=== PATIENT | male | born 1985 | race Hispanic/Latino ===

== ENCOUNTER 2016-11-09 09:57 | Emergency (ER) | payer MEDICAID ==
[2016-11-09 09:57] VITALS: BMI 40.6
[2016-11-09 10:09] VITALS: BP 149/82; PULSE 104; RESP 16; TEMP 99.1; O2SAT 98
--- NOTE | 2016-11-09 10:28 | ED PDOC ---
Arrival/HPI - General Chief Complaint: Seizure Time Seen by Provider: 11/09/16 10:21 Historian: Patient - History of Present Illness Narrative History of Present Illness (Text): 11/09/16 10:22 A 31 year old male whose past medical history includes seizure disorder, presents to the emergency department after having a seizure this morning . He was found on the bathroom floor by his father. The patient states that he has the seizures on a monthly basis. He notes that the seizure resolved on its own and that he is currently asymptomatic. He denies headache, dizziness, nausea, vomiting, diarrhea, abdominal pain, chest pain, shortness of breath, or any other complaint. Patient is ANOx3 to person, place and time. Time/Duration: Prior to Arrival Symptom Onset: Sudden Symptom Course: Resolved Activities at Onset: Rest, Light Context: Home Past Medical History - Provider Review Nursing Documentation Reviewed: Yes - Infectious Disease Hx of Infectious Diseases: None - Tetanus Immunization Tetanus Immunization: Unknown - Reproductive Currently : No - Past Medical History Past Medical History: Unable to Obtain - Neurological Hx Seizures: Yes - Psychiatric Hx Depression: No Hx Emotional Abuse: No Hx Physical Abuse: No Hx Substance Use: No - Past Surgical History Past Surgical History: Unable to Obtain - Surgical History Hx Orthopedic Surgery: Yes - Anesthesia Hx Anesthesia: No - Suicidal Assessment Feels Threatened In Home Enviroment: No Family/Social History - Physician Review Nursing Documentation Reviewed: Yes Family/Social History: No Known Family HX Smoking Status: Never Smoked Hx Alcohol Use: No Hx Substance Use: No Hx Substance Use Treatment: No Allergies/Home Meds Allergies/Adverse Reactions: Allergies No Known Allergies Allergy (Verified 11/09/16 10:04) Home Medications: Home Meds Medication Instructions Recorded Confirmed Carbamazepine [Carbamazepine ER] 600 mg PO BID 06/04/15 11/09/16 Zonisamide [Zonegran] 300 mg PO BID 11/09/16 11/09/16 Physical Exam - Physical Exam Narrative Physical Exam (Text): - Review of Systems Constitutional: Normal. absent: Fatigue, Weight Change, Fevers Eyes: Normal ENT: Normal Respiratory: Normal absent: SOB, Cough, Sputum Cardiovascular: Normal absent: Chest pain, Palpitations, Syncope Gastrointestinal: Normal absent: Abdominal pain, Diarrhea, Nausea, Vomiting Genitourinary: Normal. absent: Dysuria, Frequency, Hematuria Musculoskeletal: Normal. absent: Arthralgias, Back Pain, Neck Pain Skin: Normal Neurological: Seizure absent: Focal Weakness Endocrine: Normal Hemo/Lymphatic: Normal Psychiatric: Normal - Physical exam Patient appears age appropriate, speaking full sentences without difficulty - Systems Exam Head atraumatic. No nasal bone deformity or tenderness, no facial or jaw pain/ swelling. No neck midline tenderness, thoracic and lumbar spine with no midline tenderness. Pt moving b/l upper and lower extremities without difficulty, 5/5 strength, with full active and passive ROM. Distal neurovasc fully intact. Abd soft/nt/nd, no hematomas, no peritoneal signs. Neg. pelvic rock. Head: Present: Atraumatic, Normocephalic Pupils: Present: PERRL Extraocular Muscles: Present: EOMI Conjunctiva: Present: Normal Mouth: Present: Moist Mucous Membranes Neck: Present: Normal Range of Motion. No: MIDLINE TENDERNESS, Paraspinal Tenderness Respiratory/Chest: Present: Clear to Auscultation, Good Air Exchange. No: Respiratory Distress, Accessory Muscle Use, Tachypneic Cardiovascular: Present: Regular Rate and Rhythm, Normal S1, S2, Peripheral Pulses Present. No: Murmurs Abdomen: Present: Normal Bowel Sounds, No: Tenderness, Peritoneal Signs, Rebound, Guarding, Distention Back: Present: Normal Inspection. No: Midline Tenderness, Paraspinal Tenderness Upper Extremity: Present: Normal Inspection. No: Cyanosis, Edema Lower Extremity: Present: Normal Inspection. No: Edema Neurological: Present: GCS=15, Speech Normal, cranial nerves II through XII fully intact with no cerebellar abnormality, neuro-sensory fully intact. No focal neurological deficits. Skin: Present: Warm, Dry, Normal Color. No: Rashes Lymphatic: Present: OX3, NI, NC Psychiatric: Present: Alert, Oriented x 3, Normal Insight, Normal Concentration Vital Signs Reviewed: Yes Vital Signs Temp Pulse Resp BP Pulse Ox 11/09/16 10:08 99.1 F 104 H 16 149/82 98 Temperature: Afebrile Blood Pressure: Normal Pulse: Tachycardic Respiratory Rate: Normal Appearance: Positive for: Well-Appearing, Non-Toxic, Comfortable Pain Distress: None Mental Status: Positive for: Alert and Oriented X 3 Medical Decision Making ED Course and Treatment: 11/09/16 10:28 Impression: A 31 year old male presents after having a seizure this morning that spontaneously resolved. On exam, no acute findings. Patient is asymptomatic. No focal neurological deficits. Plan: -- EKG -- Labs -- Reassess and disposition Progress Notes: 11/09/16 10:41: Family states that they no longer want to stay in the emergency department. The father states that he has power of admitted attorneys and has requested to leave Against Medical Advice. Reports that they will follow up with Dr. Vaz. Leaving Against Medical Advice (AMA): The patient and father are choosing to leave against medical advice. I have personally explained to the family that choosing to do so may result in permanent bodily harm or . I have discussed at great length that without further evaluation and monitoring there may be unforeseen circumstances and/or deterioration causing permanent bodily harm or as a result of their choice. The patient and father are alert, oriented, and show the mental capacity to make clear decisions regarding the their health care at this time. The patient continues to wish to leave against medical advice. In light of the patients decision to leave against medical advice, follow-up has been arranged and the patient is aware of the importance to following up as instructed. The patient and father have been advised that they should return to the emergency room immediately if they change their mind at any time, or if their condition begins to change or worsen in any way. Dr. Vaz paged, no callback - Lab Interpretations I have reviewed the lab results: Yes - EKG Interpretation Interpreted by ED Physician: Yes Type: 12 lead EKG - Scribe Statement The provider has reviewed the documentation as recorded by the Scribe Griselda Schaffer Provider Scribe Attestation: All medical record entries made by the Scribe were at my direction and personally dictated by me. I have reviewed the chart and agree that the record accurately reflects my personal performance of the history, physical exam, medical decision making, and the department course for this patient. I have also personally directed, reviewed, and agree with the discharge instructions and disposition Disposition/Present on Arrival - Present on Arrival Any Indicators Present on Arrival: No History of DVT/PE: No History of Uncontrolled Diabetes: No Urinary Catheter: No History of Decub. Ulcer: No History Surgical Site Infection Following: None - Disposition Have Diagnosis and Disposition been Completed?: Yes Diagnosis: Seizure Disposition: AGAINST MEDICAL ADVICE Disposition Time: 10:43 Patient Plan: Discharge Condition: GOOD Discharge Instructions (ExitCare): Epilepsy (ED), Recurrent Seizures in Adults (ED), Against Medical Advice (ED) Additional Instructions: PLEASE RETURN TO THE EMERGENCY DEPARTMENT FOR NEW OR WORSENING SYMPTOMS. RETURN RIGHT AWAY IF YOU CANNOT FOLLOW UP WITH YOUR PRIMARY CARE DOCTOR, CLINIC, OR SPECIALIST IN 1-2 DAYS. Referrals: Otto Segovia Reapurva, [Primary Care Provider] - Follow up with primary Nathanael Vaz MD [Staff Provider] - Follow up with primary Calvin Vaz MD [Staff Provider] - Follow up with primary Forms: [employer] (Kiswahili)
[2016-11-09 10:46] LABS: BASO # 0.01 K/mm3 (0.0-2.0); BASO % 0.2 % (0.0-3.0); EOS # 0.1 (0.0-0.7); EOS % 1.9 % (1.5-5.0); GRAN # 2.96 (1.4-6.5); GRAN % 55.6 % (50.0-68.0); LYMPH # 1.9 (1.2-3.4); LYMPH % 36.3 % (22.0-35.0); MEAN CELL VOLUME 94.1 fl (80.0-105.0); MEAN CORPUSCULAR HEMOGLOBIN 32.6 pg (25.0-35.0); MEAN CORPUSCULAR HGB CONC 34.7 g/dl (31.0-37.0); MEAN PLATELET VOLUME 8.7 fl (7.0-11.0); MONO # 0.3 (0.1-0.6); RED CELL DISTRIBUTION WIDTH 12.7 % (11.5-14.5); WHITE BLOOD COUNT 5.3 10^3/ul (4.5-11.0)
[2016-11-09 10:51] LABS: ALB/GLOB RATIO 1.4 (1.1-1.8); ALKALINE PHOSPHATASE 63 U/L (38-126); ALT/SGPT 38 U/L (7-56); AST/SGOT 23 U/L (17-59); BILIRUBIN,TOTAL 0.3 mg/dL (0.2-1.3); BLOOD UREA NITROGEN 11 mg/dL (7-21); CALCIUM 8.7 mg/dL (8.4-10.5); CARBON DIOXIDE 27 mmol/L (21-33); CHLORIDE 100 mmol/L (98-107); GFR AFRICAN-AMERICAN > 60; GLUCOSE,RANDOM 255 mg/dL (70-110); POTASSIUM 3.9 mmol/L (3.6-5.0); SODIUM 138 mmol/L (132-148)
--- NOTE | 2016-11-09 20:50 | CARD ---
APPROVED REPORT EKG Measurement Heart [id number] IN 130P24 [id number] <Conclusion> Sinus tachycardia Moderate voltage criteria for LVH, may be normal variant Borderline ECG
== END 2016-11-09 11:24 | disposition left against medical advice (07) ==
LOC: ED 09:57
DX: G40.909 Epilepsy, unspecified, not intractable, without status epilepticus (principal)

== ENCOUNTER 2017-07-13 10:53 | Emergency (ER) | payer MEDICAID ==
[2017-07-13 10:54] VITALS: BMI 40.6
== END 2017-07-13 11:14 | disposition left against medical advice (07) ==
LOC: ED 10:53
DX: Z02.89 Encounter for other administrative examinations (principal); R56.9 Unspecified convulsions

== ENCOUNTER 2017-11-17 09:32 | Emergency (ER) | payer MEDICAID ==
[2017-11-17 09:33] VITALS: BMI 40.6
[2017-11-17 09:48] VITALS: TEMP 98; O2SAT 99
[2017-11-17] MEDS ORDERED: TDAP Vaccine 0.5 mL Syr IM ONE (09:54)
--- NOTE | 2017-11-17 09:54 | ED PDOC ---
Arrival/HPI - General Time Seen by Provider: 11/17/17 09:47 Historian: Patient - History of Present Illness Narrative History of Present Illness (Text): 11/17/17 09:49 32 y/o male, pmh including seizure, nkda, last tetanus doesn't remember, biba, fully AOX3, alert and oriented, c/o head and facial injury s/p seizure episode about 2 hours ago. Pt. stated that he just went outside of his house, witnessed by bystanders that he had a seizure episode which the patient doesn't recall the whole event, fall to the lt. sided head/facial region, associated with laceration, no neck or back pain, admits bilateral hand abrasion from the fall, no numbness or tingling, no night sweat, no dizziness, no change in vision , no rash, no chest pain or shortness of breath, no other medical or psychological complaints. Past Medical History - Provider Review Nursing Documentation Reviewed: Yes - Infectious Disease Hx of Infectious Diseases: None - Tetanus Immunization Tetanus Immunization: Unknown - Past Medical History Past Medical History: Unable to Obtain - Cardiac Hx Cardiac Disorders: No - Pulmonary Hx Respiratory Disorders: No - Neurological Hx Seizures: Yes Other/Comment: ADD - HEENT Hx HEENT Disorder: No - Renal Hx Renal Disorder: No - Endocrine/Metabolic Hx Endocrine Disorders: No - Hematological/Oncological Hx Blood Disorders: No - Integumentary Hx Dermatological Disorder: No - Musculoskeletal/Rheumatological Hx Musculoskeletal Disorders: No - Gastrointestinal Hx Gastrointestinal Disorders: No - Genitourinary/Gynecological Hx Genitourinary Disorders: No - Psychiatric Hx Depression: No Hx Emotional Abuse: No Hx Physical Abuse: No Hx Substance Use: No - Past Surgical History Past Surgical History: Unable to Obtain - Surgical History Hx Orthopedic Surgery: Yes - Anesthesia Hx Anesthesia: No - Suicidal Assessment Feels Threatened In Home Enviroment: No Family/Social History - Physician Review Nursing Documentation Reviewed: Yes Family/Social History: Unknown Family HX Smoking Status: Never Smoked Hx Alcohol Use: No Hx Substance Use: No Hx Substance Use Treatment: No Allergies/Home Meds Allergies/Adverse Reactions: Allergies No Known Allergies Allergy (Verified 11/09/16 10:04) Home Medications: Home Meds Medication Instructions Recorded Confirmed Carbamazepine [Carbamazepine ER] 600 mg PO BID 06/04/15 11/17/17 Zonisamide [Zonegran] 300 mg PO BID 11/09/16 11/17/17 Review of Systems - Review of Systems Constitutional: absent: Fatigue, Fevers Eyes: absent: Vision Changes ENT: absent: Hearing Changes Respiratory: absent: SOB Cardiovascular: absent: Syncope Gastrointestinal: absent: Nausea, Vomiting Musculoskeletal: absent: Arthralgias, Back Pain, Neck Pain Skin: Laceration, Other (+abrasion). absent: Rash, Pruritis, Skin Lesions, Abscess, Ulcer, Cellulitis Neurological: absent: Headache, Dizziness Psychiatric: absent: Anxiety, Depression, Suicidal Ideation Physical Exam Vital Signs Reviewed: Yes Vital Signs Temp Pulse Resp BP Pulse Ox 11/17/17 13:55 79 19 148/86 99 11/17/17 10:45 79 22 150/87 99 11/17/17 09:43 98 F 78 18 135/77 99 Temperature: Afebrile Blood Pressure: Normal Pulse: Regular Respiratory Rate: Normal Appearance: Positive for: Well-Appearing, Non-Toxic, Comfortable Pain Distress: Mild Mental Status: Positive for: Alert and Oriented X 3 - Systems Exam Head: Present: Normocephalic, Contusion (lt. lateral frontal forehead), Swelling (lt. lateral frontal forehead), Other (Facial: lt. lateral periorbital region visible approx. 3cm superficial to intermediate depth laceration with irregular shaped along with abrasion and avulsed wound noted with no visible foreign bodies. ). No: Tenderness, Ecchymosis, Abrasion, Laceration Pupils: Present: PERRL Extroacular Muscles: Present: EOMI Conjunctiva: Present: Normal Ears: Present: NORMAL TM, Normal Canal. No: Erythema, TM Bulging Mouth: Present: Moist Mucous Membranes Pharnyx: Present: Normal. No: ERYTHEMA, EXUDATE, TONSILS ENLARGED, Uvular Deviation, Soft Palate/Uvular Edema Nose (External): Present: Atraumatic. No: Abrasion, Contusion, Laceration Nose (Internal): Present: Normal Inspection, No Active Bleeding. No: Rhinorrhea , Septal Hematoma, Epistaxis Neck: Present: Normal Range of Motion, Trachea Midline. No: Meningeal Signs, MIDLINE TENDERNESS, Paraspinal Tenderness, Lymphadenopathy Respiratory/Chest: Present: Clear to Auscultation, Good Air Exchange. No: Respiratory Distress, Accessory Muscle Use, Wheezes, Decreased Breath Sounds, Rales, Retracting, Rhonchi, Tachypneic, Tender to Palpation Cardiovascular: Present: Regular Rate and Rhythm, Normal S1, S2. No: Murmurs Abdomen: No: Tenderness, Distention, Peritoneal Signs Back: Present: Normal Inspection. No: CVA Tenderness, Midline Tenderness, Paraspinal Tenderness, Pain with Leg Raise Upper Extremity: Present: Normal Inspection, Other (Bilateral hand/wrist: + bilateal hand 2nd to 5th digit region approx. 1cm diameter abrasion noted on the dorsum digits, no scaphoid tenderness, FROM without limitation, sensation intact, motor 5/5, +radial pulse, capillary refill< 2 seconds, neurovascular intact. ). No: Cyanosis, Edema Lower Extremity: Present: Normal Inspection, NORMAL PULSES, Normal ROM, Neurovascularly Intact, Capillary Refill < 2 s. No: Edema, CALF TENDERNESS, Tenderness, Swelling, Deformity Neurological: Present: GCS=15, CN II-XII Intact, Speech Normal, Motor Func Grossly Intact, Gait Normal, Memory Normal Skin: Present: Warm, Dry, Normal Color. No: Rashes Lymphatic: No: Cervical Adenopathy Psychiatric: Present: Alert, Oriented x 3, Normal Insight, Normal Concentration Medical Decision Making ED Course and Treatment: 11/17/17 10:08 -Labs/ck/uds/alcohol -CT head/facial -Bilateral hands xrays -IVF/tdap -wound irrigates with normal saline, clean with betadine, bacitracin and gauze dressing. -Observe and reassess 11/17/17 10:32 -Pt just had an seizure episode, ativan 2mg IV ordered. 11/17/17 12:02 -Pt. is calmed, awake and alertx4, feeling well, not in postictal state. 11/17/17 12:12 -Pt. has another of seizure, examined with Dr. Dupree, agreed keppra 1g and ativan 2mg. 11/17/17 12:56 PROCEDURE: LACERATION REPAIR Performed by the emergency provider Location: lt. lateral eyebrow region Length: 3 cm Description: {"clean, irregular/avulsion/abrasion wound edge","no foreign bodies "} Distal CMS: Normal. No deficits. Neurovascularly intact. Anesthesia: Lidocaine 1% using 1cc Preparation: The wound was cleaned with NS 1000cc and clean with Betadyne. The area was prepped and draped in the usual sterile fashion. Exploration: The wound was explored and no foreign bodies were found. Procedure: The wound was closed with 6-0 nylon. There was {good / appropriate / adequate / loose} approximation. In total, 7 were used. Post-Procedure: Good closure and hemostasis. The patient tolerated the procedure well and there were no complications. CSM remains intact. Post procedure dressing applied. I explained to the patient that he would need the stiches removed by day 5. 11/17/17 13:35 -CT Head: No acute intracranial findings -CT Facial: No evidence of fracture -Left hand xray: no fracture or dislocation -Rt. hand xray: no fracture or dislocation -Labs show no acute findings -Alcohol/salicylate and carba level: within normal limit -UA ordered and no specieman provided -UDS ordered and no specieman provided. -I discussed the case with his pmd Dr. Daniel Benedict which I recommend admission as he had 2 episodes of seizure in the past 3 hours but the patient is declining admission which he is fully awake and Alert/oriented x4 that he can make his own decision. Father is on the bedside and agreed with his son's decision. AMA -Pt. received 1gm of keppra, aox4, alert and oriented, not in seizure and no postictal state, refused to be admitted and the father stated that he respect his son decision. Father stated that the son can make his own decision and he has no legal rights. Father stated that he would take the son home and call ambulance when they decide to resume the care, Against medical advice paper signed by the patient and the father. -You sign out against medical advice. you need to stay at the hospital for your seizure and further evaluation but you declined. You need to see your own pmd and neurologist within 1 days, sutures need to be removed by day 5 and clean the wound twice daily, return to the ER for any new or worsening signs or symptoms. - Lab Interpretations Lab Results: 11/17/17 10:30 11/17/17 10:30 Lab Results 11/17/17 10:30: WBC 9.3 D, RBC 4.96, Hgb 15.8, Hct 47.0, MCV 94.8, MCH 31.9, MCHC 33.6, RDW 12.3, Plt Count 202, MPV 8.9, Gran % 56.3, Lymph % (Auto) 35.9 H , [place] % (Auto) 6.1 H, Eos % (Auto) 1.5, Baso % (Auto) 0.2, Gran # 5.23, Lymph # (Auto) 3.3, [place] # (Auto) 0.6, Eos # (Auto) 0.1, Baso # (Auto) 0.02 11/17/17 10:30: Alcohol, Quantitative < 10 11/17/17 10:30: Salicylates < 1 L, Carbamazepine 9 11/17/17 10:30: Sodium 143, Potassium 4.0, Chloride 105, Carbon Dioxide 26, Anion Gap 16, BUN 13, Creatinine 1.1, Est GFR ( Amer) > 60, Est GFR (Non- Af Amer) > 60, Random Glucose 134 H, Calcium 9.0, Magnesium 2.0, Total Bilirubin 0.3, AST 25, ALT 38, Alkaline Phosphatase 88, Total Creatine Kinase 98 , Total Protein 8.1, Albumin 4.7, Globulin 3.4, Albumin/Globulin Ratio 1.4 - RAD Interpretation Radiology Orders: 11/17/17 09:54 HEAD W/O CONTRAST [CT] Stat MAXILLOFACIAL W/O CONTRAST [CT] Stat 11/17/17 10:02 HAND LEFT 3 VIEWS ROUTINE [RAD] Stat HAND RIGHT 3 VIEWS [RAD] Stat CT Head: PROCEDURE: CT HEAD WITHOUT CONTRAST. HISTORY: fall, seizure, injury COMPARISON: 08/05/2014 TECHNIQUE: Axial computed tomography images were obtained through the head/brain without intravenous contrast. Radiation dose: Total exam DLP = 898 mGy-cm. This CT exam was performed using one or more of the following dose reduction techniques: Automated exposure control, adjustment of the mA and/or kV according to patient size, and/or use of iterative reconstruction technique. FINDINGS: HEMORRHAGE: No intracranial hemorrhage. BRAIN: No mass effect or edema. No atrophy or chronic microvascular ischemic changes. VENTRICLES: Unremarkable. No hydrocephalus. CALVARIUM: Unremarkable. PARANASAL SINUSES: Unremarkable as visualized. No significant inflammatory changes. MASTOID AIR CELLS: Unremarkable as visualized. No inflammatory changes. OTHER FINDINGS: None. IMPRESSION: No acute intracranial findings -------- CT facial: PROCEDURE: CT MAXILLOFACIAL BONES WITHOUT CONTRAST HISTORY: Lt. lateral eyebrow laceration, fall, seizure COMPARISON: None available. TECHNIQUE: Contiguous axial CT images of the maxillofacial bones were obtained. Coronal and sagittal reformats were generated. Radiation dose: Total exam DLP = 850 mGy-cm. This CT exam was performed using one or more of the following dose reduction techniques: Automated exposure control, adjustment of the mA and/or kV according to patient size, and/or use of iterative reconstruction technique. FINDINGS: NASAL BONES: Unremarkable. ORBITS: There is soft tissue swelling lateral to the left orbit. There is no fracture PARANASAL SINUSES/ MASTOIDS: Clear. MAXILLA: Unremarkable. MANDIBLE/ TEMPOROMANDIBULAR JOINTS: Unremarkable. SKULL BASE: Unremarkable. TEMPORAL BONES: Middle ears and mastoid grossly unremarkable. OTHER FINDINGS: None. IMPRESSION: No evidence of fracture ------- Lt. hand xray: PROCEDURE: Left Hand Radiographs. HISTORY: finger abrasion and injury COMPARISON: None. FINDINGS: BONES: Normal. No fracture. JOINTS: Normal. No osteoarthritic changes. SOFT TISSUES: Normal. OTHER FINDINGS: None. IMPRESSION: Normal left hand radiographs. Rt. hand xray: PROCEDURE: Right Hand Radiographs. HISTORY: finger abrasion and injury COMPARISON: None. FINDINGS: BONES: Normal. No fracture. JOINTS: Normal. No osteoarthritic changes. SOFT TISSUES: Normal. OTHER FINDINGS: None. IMPRESSION: Normal right hand radiographs. Public Health Training Assistant: Radiologist - Medication Orders Current Medication Orders: Discontinued Medications Sodium Chloride (Sodium Chloride 0.9%) 1,000 mls @ 999 mls/hr IV .Q1H1M STA Stop: 11/17/17 10:56 Last Admin: 11/17/17 10:46 Dose: 999 mls/hr eMAR Start Stop Document 11/17/17 10:46 SUDO (Rec: 11/17/17 10:47 [id number] Intravenous Solution Start Date 11/17/17 Start Time 10:35 Levetiracetam 1,000 mg/ Sodium (Chloride) 110 mls @ 440 mls/hr IV ONCE ONE Stop: 11/17/17 12:27 Last Admin: 11/17/17 12:54 Dose: 440 mls/hr eMAR Start Stop Document 11/17/17 12:54 SUDO (Rec: 11/17/17 12:55 [place] [id number]) Intravenous Solution Start Date 11/17/17 Start Time 12:55 Lorazepam (Ativan) 2 mg IVP ONCE ONE PRN Reason: Protocol Stop: 11/17/17 10:34 Last Admin: 11/17/17 10:47 Dose: 2 mg IVP Administration Document 11/17/17 10:47 DELANOO (Rec: 11/17/17 10:48 [id number] Charges for Administration # of IVP Administrations 1 Lorazepam (Ativan) 2 mg IVP ONCE ONE PRN Reason: Protocol Stop: 11/17/17 12:14 Last Admin: 11/17/17 12:20 Dose: 2 mg Comments: seizure IVP Administration Document 11/17/17 12:20 SUDO (Rec: 11/17/17 12:59 [id number]) Charges for Administration # of IVP Administrations 1 Tetanus/Reduced Diphtheria/Acell Pertussis (Boostrix Vaccine Inj) 0.5 ml IM .ONCE ONE Stop: 11/17/17 09:55 Last Admin: 11/17/17 10:48 Dose: 0.5 ml MAR Immunization Data Document 11/17/17 10:48 SUDOJ (Rec: 11/17/17 10:49 SUDOJ [id number]) Immunization Data Vaccine Information Sheet Given Yes Vaccine Information Sheet Given Date 11/17/17 Associated Event Comment patient s/p fall Immunization Registry Document 11/17/17 10:48 SUDOJ (Rec: 11/17/17 10:49 SUDOJ [id number]) Immunization Registry Consent Date 06/25/17 - PA / FORMS DESIGNER / Resident Statement DREA has reviewed & agrees with the documentation as recorded. Disposition/Present on Arrival - Present on Arrival Any Indicators Present on Arrival: No History of DVT/PE: No History of Uncontrolled Diabetes: No Urinary Catheter: No History of Decub. Ulcer: No History Surgical Site Infection Following: None - Disposition Have Diagnosis and Disposition been Completed?: Yes Diagnosis: Seizure, Facial laceration, Abrasion, Contusion, Non-compliance Disposition: AGAINST MEDICAL ADVICE Disposition Time: 13:40 Condition: STABLE Additional Instructions: -You sign out against medical advice. you need to stay at the hospital for your seizure and further evaluation but you declined. You need to see your own pmd and neurologist within 1 days, sutures need to be removed by day 5 and clean the wound twice daily, return to the ER for any new or worsening signs or symptoms. Prescriptions: Cephalexin [Keflex] 500 mg PO TID #15 capsule Referrals: Nathanael Vaz MD [Staff Provider] - Follow up with primary Daniel Benedict DO [Family Provider] - Follow up with primary Forms: WORK NOTE
[2017-11-17] MEDS ORDERED: Sodium Chloride 0.9% 1,000 ML IV STA (09:56)
[2017-11-17 11:00] LABS: ALB/GLOB RATIO 1.4 (1.1-1.8); ALBUMIN 4.7 g/dL (3.0-4.8); ALT/SGPT 38 U/L (7-56); AST/SGOT 25 U/L (17-59); BLOOD UREA NITROGEN 13 mg/dL (7-21); GFR NON-AFRICAN AMERICAN > 60
[2017-11-17 11:08] LABS: CARBAMAZEPINE 9 ug/mL (4.0-10.0); SALICYLATE < 1 mg/dL (2.0-20.0)
[2017-11-17 11:17] LABS: BASO # 0.02 K/mm3 (0.0-2.0); BASO % 0.2 % (0.0-3.0); EOS # 0.1 (0.0-0.7); EOS % 1.5 % (1.5-5.0); GRAN # 5.23 (1.4-6.5); GRAN % 56.3 % (50.0-68.0); HEMOGLOBIN 15.8 g/dL (14.0-18.0); LYMPH # 3.3 (1.2-3.4); LYMPH % 35.9 % (22.0-35.0); MEAN CELL VOLUME 94.8 fl (80.0-105.0); MEAN CORPUSCULAR HEMOGLOBIN 31.9 pg (25.0-35.0); MEAN CORPUSCULAR HGB CONC 33.6 g/dl (31.0-37.0); MEAN PLATELET VOLUME 8.9 fl (7.0-11.0); MONO # 0.6 (0.1-0.6); MONO % 6.1 % (1.0-6.0); RBC 4.96 10^6/uL (3.5-6.1); RED CELL DISTRIBUTION WIDTH 12.3 % (11.5-14.5); WHITE BLOOD COUNT 9.3 10^3/ul (4.5-11.0)
--- NOTE | 2017-11-17 11:43 | CT ---
Date of service: 11/17/2017 PROCEDURE: CT HEAD WITHOUT CONTRAST. HISTORY: fall, seizure, injury COMPARISON: 08/05/2014 TECHNIQUE: Axial computed tomography images were obtained through the head/brain without intravenous contrast. Radiation dose: Total exam DLP = 898 mGy-cm. This CT exam was performed using one or more of the following dose reduction techniques: Automated exposure control, adjustment of the mA and/or kV according to patient size, and/or use of iterative reconstruction technique. FINDINGS: HEMORRHAGE: No intracranial hemorrhage. BRAIN: No mass effect or edema. No atrophy or chronic microvascular ischemic changes. VENTRICLES: Unremarkable. No hydrocephalus. CALVARIUM: Unremarkable. PARANASAL SINUSES: Unremarkable as visualized. No significant inflammatory changes. MASTOID AIR CELLS: Unremarkable as visualized. No inflammatory changes. OTHER FINDINGS: None. IMPRESSION: No acute intracranial findings
--- NOTE | 2017-11-17 11:46 | CT ---
Date of service: 11/17/2017 PROCEDURE: CT MAXILLOFACIAL BONES WITHOUT CONTRAST HISTORY: Lt. lateral eyebrow laceration, fall, seizure COMPARISON: None available. TECHNIQUE: Contiguous axial CT images of the maxillofacial bones were obtained. Coronal and sagittal reformats were generated. Radiation dose: Total exam DLP = 850 mGy-cm. This CT exam was performed using one or more of the following dose reduction techniques: Automated exposure control, adjustment of the mA and/or kV according to patient size, and/or use of iterative reconstruction technique. FINDINGS: NASAL BONES: Unremarkable. ORBITS: There is soft tissue swelling lateral to the left orbit. There is no fracture PARANASAL SINUSES/ MASTOIDS: Clear. MAXILLA: Unremarkable. MANDIBLE/ TEMPOROMANDIBULAR JOINTS: Unremarkable. SKULL BASE: Unremarkable. TEMPORAL BONES: Middle ears and mastoid grossly unremarkable. OTHER FINDINGS: None. IMPRESSION: No evidence of fracture
[2017-11-17] MEDS ORDERED: levETIRAcetam 1,000 MG in Sodium Chloride 0.9% 100 ML IV ONE (12:13)
[2017-11-17 13:55] VITALS: PULSE 79
[2017-11-17 13:56] VITALS: BP 148/86; RESP 19
--- NOTE | 2017-11-17 14:49 | RAD ---
PROCEDURE: Right Hand Radiographs. HISTORY: finger abrasion and injury COMPARISON: None. FINDINGS: BONES: Normal. No fracture. JOINTS: Normal. No osteoarthritic changes. SOFT TISSUES: Normal. OTHER FINDINGS: None. IMPRESSION: Normal right hand radiographs.
--- NOTE | 2017-11-17 14:50 | RAD ---
PROCEDURE: Left Hand Radiographs. HISTORY: finger abrasion and injury COMPARISON: None. FINDINGS: BONES: Normal. No fracture. JOINTS: Normal. No osteoarthritic changes. SOFT TISSUES: Normal. OTHER FINDINGS: None. IMPRESSION: Normal left hand radiographs.
== END 2017-11-17 13:35 | disposition left against medical advice (07) ==
LOC: ED 09:32
DX: S01.112A Laceration without foreign body of left eyelid and periocular area, initial encounter (principal); W18.39XA Other fall on same level, initial encounter; Y92.89 Other specified places as the place of occurrence of the external cause; R56.9 Unspecified convulsions; Z91.19 Patient's noncompliance with other medical treatment and regimen; Z23 Encounter for immunization
CPT/HCPCS: 12013; 70450; 70486; 73130; 80053; 80156; 80320; 80329; 82550; 83735; 85025; 90471; 90715; 96374; 96375; 96376; 99285; J1953; J2060; J7030

== ENCOUNTER 2018-06-01 20:21 | Emergency (ER) | payer MEDICAID ==
[2018-06-01 20:36] VITALS: BMI 48.7
--- NOTE | 2018-06-01 21:15 | ED PDOC ---
Arrival/HPI - General Chief Complaint: Seizure Time Seen by Provider: 06/01/18 20:23 Historian: Patient - History of Present Illness Narrative History of Present Illness (Text): 06/01/18 21:10 33 year old male, whose past medical history includes seizure disorder, presents to the emergency department for evaluation, status post multiple seizures. Patient's father states he witnessed him have 7 seizures within a period of 30 m inutes. Father states this is not normal for him, as he usually has only a couple of seizures a month. Patient states he feels fine now. Patient denies any urinary/fecal incontinence or biting his tongue. Patient denies any fevers, chills, chest pain, shortness of breath, cough, diaphoresis, abdominal pain, nausea, vomiting, diarrhea, back pain, neck pain, or any other complaint. PMD: Dr Benedict Neuro: Dr Peck Time/Duration: Prior to Arrival Symptom Onset: Sudden Symptom Course: Improving, Resolved Context: Home Past Medical History - Provider Review Nursing Documentation Reviewed: Yes - Infectious Disease Hx of Infectious Diseases: None - Tetanus Immunization Tetanus Immunization: Unknown - Past Medical History Past Medical History: Unable to Obtain - Cardiac Hx Cardiac Disorders: No - Pulmonary Hx Respiratory Disorders: No - Neurological Hx Seizures: Yes Other/Comment: ADD - HEENT Hx HEENT Disorder: No - Renal Hx Renal Disorder: No - Endocrine/Metabolic Hx Endocrine Disorders: No - Hematological/Oncological Hx Blood Disorders: No - Integumentary Hx Dermatological Disorder: No - Musculoskeletal/Rheumatological Hx Musculoskeletal Disorders: No - Gastrointestinal Hx Gastrointestinal Disorders: No - Genitourinary/Gynecological Hx Genitourinary Disorders: No - Psychiatric Hx Depression: No Hx Emotional Abuse: No Hx Physical Abuse: No Hx Substance Use: No - Past Surgical History Past Surgical History: Unable to Obtain - Surgical History Hx Orthopedic Surgery: Yes - Anesthesia Hx Anesthesia: No - Suicidal Assessment Feels Threatened In Home Enviroment: No Family/Social History - Physician Review Nursing Documentation Reviewed: Yes Family/Social History: No Known Family HX Smoking Status: Never Smoked Hx Alcohol Use: No Hx Substance Use: No Hx Substance Use Treatment: No Allergies/Home Meds Allergies/Adverse Reactions: Allergies No Known Allergies Allergy (Verified 11/22/17 11:00) Home Medications: Home Meds Medication Instructions Recorded Confirmed Carbamazepine [Carbamazepine ER] 600 mg PO BID 06/04/15 06/01/18 Zonisamide [Zonegran] 300 mg PO BID 11/09/16 06/01/18 Review of Systems - Physician Review All systems were reviewed & negative as marked: Yes - Review of Systems Constitutional: absent: Fevers Cardiovascular: absent: Chest Pain Physical Exam - Physical Exam Narrative Physical Exam (Text): 06/01/18 21:17 Constitutional: No acute distress. Head: Normocephalic. Atraumatic. Eyes: PERRL. ENT: Moist mucous membranes. No tongue lacerations. Neck: Supple. Cardiovascular: Regular rate. Chest: No tenderness. Respiratory: Clear to auscultation bilaterally. GI: Soft. Nontender. Nondistended. Back: No CVA tenderness. Musculoskeletal: No tenderness or swelling of extremities. Skin: No rash. Neurologic: Alert, no focal deficit. Vital Signs Reviewed: Yes Vital Signs Pulse Resp BP Pulse Ox 06/01/18 21:00 99 H 18 118/59 L 100 Temperature: Afebrile Blood Pressure: Normal Pulse: Tachycardic Respiratory Rate: Normal Appearance: Positive for: Well-Appearing, Non-Toxic, Comfortable Pain Distress: None Mental Status: Positive for: Alert and Oriented X 3 Finger Stick Blood Glucose: 217 Medical Decision Making ED Course and Treatment: 06/01/18 21:22 Impression: 33 year old male presents with multiple seizures. Plan: -- CT Head -- CMP, Mg, P -- CBC -- Chest X-ray -- Urinalysis -- Reassess and disposition Prior Visits: Notes and results from previous visits were reviewed. Progress Notes: 06/01/18 21:29 Seizure witnessed at this time, 1mg Ativan administered, seizure lasted 1 minute. 06/01/18 22:38 CT Head without Intravenous Contrast. CLINICAL HISTORY: SEIZURES TECHNIQUE: Axial computed tomography images of the head/brain without intravenous contrast. 2106.01 mGy-cm COMPARISON: None provided. FINDINGS: BRAIN No acute intraparenchymal hemorrhage. No mass lesion. No CT evidence for acute territorial infarct. No midline shift or extra-axial collections. VENTRICLES: No hydrocephalus. ORBITS: The orbits are unremarkable. SINUSES AND MASTOIDS: There is opacification of the right maxillary, right ethmoid and right frontal sinuses compatible with sinusitis. The remaining paranasal sinuses and mastoid air cells are clear. BONES: No fracture. SOFT TISSUES: Unremarkable. IMPRESSION: 1. No acute intracranial abnormality. 2. Right maxillary, ethmoid and frontal sinusitis. 06/01/18 22:41 Leaving Against Medical Advice (AMA): The patient is choosing to leave against medical advice. I have personally explained to the patient that choosing to do so may result in permanent bodily harm, disability, or . I have discussed at great length that without further evaluation and monitoring there may be unforeseen circumstances and/or d eterioration causing permanent bodily harm or as a result of their choice. The patient is alert, oriented, and shows the mental capacity to make clear decisions regarding the patients health care at this time. The patient continues to wish to leave against medical advice. The patient has been advised that they should return to the emergency room immediately if they change their mind at any time, or if their condition begins to change or worsen in any way. - Scribe Statement The provider has reviewed the documentation as recorded by the Luanaibclarisa Mtz Provider Scribe Attestation: All medical record entries made by the Scribe were at my direction and personally dictated by me. I have reviewed the chart and agree that the record accurately reflects my personal performance of the history, physical exam, medical decision making, and the department course for this patient. I have also personally directed, reviewed, and agree with the discharge instructions and disposition. Disposition/Present on Arrival - Present on Arrival Any Indicators Present on Arrival: No History of DVT/PE: No History of Uncontrolled Diabetes: No Urinary Catheter: No History of Decub. Ulcer: No History Surgical Site Infection Following: None - Disposition Have Diagnosis and Disposition been Completed?: Yes Diagnosis: Seizure Disposition: AGAINST MEDICAL ADVICE Disposition Time: 22:41 Patient Plan: Discharge Condition: UNKNOWN Discharge Instructions (ExitCare): Seizures Forms: [employer] ([place])
[2018-06-01 21:50] LABS: ALB/GLOB RATIO 1.2 (1.1-1.8); ALBUMIN 4.5 g/dL (3.0-4.8); ALT/SGPT 25 U/L (7-56); AST/SGOT 29 U/L (17-59); BLOOD UREA NITROGEN 11 mg/dL (7-21); CALCIUM 9.1 mg/dL (8.4-10.5); GFR NON-AFRICAN AMERICAN 58
[2018-06-01 22:10] LABS: BASO # 0.02 K/mm3 (0.0-2.0); BASO % 0.1 % (0.0-3.0); EOS # 0.2 (0.0-0.7); HEMOGLOBIN 15.5 g/dL (14.0-18.0); LYMPH # 2.6 (1.2-3.4); LYMPH % 16.2 % (22.0-35.0); MEAN CELL VOLUME 96.3 fl (80.0-105.0); MEAN CORPUSCULAR HEMOGLOBIN 32.3 pg (25.0-35.0); MEAN CORPUSCULAR HGB CONC 33.5 g/dl (31.0-37.0); MEAN PLATELET VOLUME 9.4 fl (7.0-11.0); MONO # 0.6 (0.1-0.6); MONO % 3.8 % (1.0-6.0); RBC 4.8 10^6/uL (3.5-6.1); RED CELL DISTRIBUTION WIDTH 12.8 % (11.5-14.5); WHITE BLOOD COUNT 15.8 10^3/uL (4.5-11.0)
[2018-06-01 22:21] VITALS: RESP 18; TEMP 98.3; O2SAT 100
[2018-06-02 00:49] VITALS: BP 121/62; PULSE 87
--- NOTE | 2018-06-02 08:36 | CT ---
Date of service: 06/01/2018 PROCEDURE: CT HEAD WITHOUT CONTRAST. HISTORY: seizures COMPARISON: None available. TECHNIQUE: Axial computed tomography images were obtained through the head/brain without intravenous contrast. Radiation dose: Total exam DLP = 2106.0 mGy-cm. This CT exam was performed using one or more of the following dose reduction techniques: Automated exposure control, adjustment of the mA and/or kV according to patient size, and/or use of iterative reconstruction technique. FINDINGS: HEMORRHAGE: No intracranial hemorrhage. BRAIN: No mass effect or edema. No atrophy or chronic microvascular ischemic changes. VENTRICLES: Unremarkable. No hydrocephalus. CALVARIUM: Unremarkable. PARANASAL SINUSES: There is complete opacification of the right maxillary sinus and the majority of the right ethmoid air cells. MASTOID AIR CELLS: Unremarkable as visualized. No inflammatory changes. OTHER FINDINGS: The report concurs with the preliminary [facility] report IMPRESSION: No acute intracranial findings
--- NOTE | 2018-06-02 09:18 | RAD ---
Date of service: 06/01/2018 HISTORY: seizures COMPARISON: Not available TECHNIQUE: 1 view obtained. FINDINGS: LUNGS: No active pulmonary disease. PLEURA: No significant pleural effusion identified, no pneumothorax apparent. CARDIOVASCULAR: No aortic atherosclerotic calcification present. Normal cardiac size. No pulmonary vascular congestion. OSSEOUS STRUCTURES: No significant abnormalities. VISUALIZED UPPER ABDOMEN: Normal. OTHER FINDINGS: None. IMPRESSION: No active disease.
--- NOTE | 2018-06-02 09:21 | CARD ---
APPROVED REPORT Date of service: 06/01/2018 EKG Measurement Heart [id number] <Conclusion> Sinus tachycardia Minimal voltage criteria for LVH, may be normal variant Borderline ECG
== END 2018-06-01 22:41 | disposition left against medical advice (07) ==
LOC: ED 20:21
DX: G40.909 Epilepsy, unspecified, not intractable, without status epilepticus (principal)
CPT/HCPCS: 70450; 71045; 80053; 83735; 84100; 85025; 93005; 96374; 99285; J2060